=== PATIENT | male | born 1970 | race Caucasian/White ===

== ENCOUNTER 2016-08-24 14:40 | Observation (INO) | payer MEDICARE, OTHER ==
[2016-08-24 15:47] LABS: Hematocrit 43 % (42-52); Hemoglobin 14.8 g/dl (14.0-18.0); Mean Corpuscular HGB Conc 35 g/dl (31-36); Mean Corpuscular Hemoglobin 30 pg (27-31); Mean Corpuscular Volume 86 fL (80-94); Mean Platelet Volume 8 um3 (7.4-10.4); Red Blood Count 4.99 10^6/ul (4.0-5.4); Red Cell Distribution Width 14 % (10.5-15); White Blood Count 12.8 10^3/ul (3.5-10.8)
--- NOTE | 2016-08-24 15:59 | RAD ---
INDICATION: Change in neurologic status and could cortes. COMPARISON: CT brain February 27, 2016 TECHNIQUE: Noncontrast axial source images were acquired from the skull base to the vertex. FINDINGS: Ventricles/sulci: The ventricles and cisterns are normal in size and configuration for age. Brain parenchyma: There is no focal parenchymal finding, evidence of intracranial mass, or intracranial mass effect. Intracranial hemorrhage:None. Extra-axial spaces: There are no abnormal extra axial fluid collections or evidence of extra-axial mass. Calvarium: There is no calvarial fracture or other calvarial abnormality. Scalp: There are multiple subcutaneous scalp lesions appearing unchanged and likely representing sebaceous cysts.. Paranasal sinuses/mastoid: The paranasal sinuses and mastoid air cells are clear. Other: None. IMPRESSION: No acute intracranial findings. Findings called to ED at 1554 hours
[2016-08-24] MEDS ORDERED: Iodixanol* (CONTRAST) 320 MG/ML 100 ML SDV IV ONE (16:02)
[2016-08-24 16:09] LABS: Albumin 4.6 g/dL (3.2-5.2); Calcium 9.7 mg/dL (8.6-10.3); EGFR African American 117.3 (>60); EGFR Non-African American 91.2 (>60); Globulin 3.5 g/dL (2-4); HDL Cholesterol 50.9 mg/dL; Potassium 3.6 mmol/L (3.5-5.0); Total Bilirubin 0.5 mg/dL (0.2-1.0); Total Protein 8.1 g/dL (6.4-8.9)
[2016-08-24] MEDS ORDERED: LORazepam INJ* 2 MG/ML 1 ML VIAL IV ONE (16:20)
--- NOTE | 2016-08-24 16:20 | RAD ---
INDICATION: Code cortes COMPARISON: Chest x-ray June 30, 2013 TECHNIQUE: An AP portable view obtained at 1607 hours is submitted. FINDINGS: Bones/Soft Tissues: There are no acute bony findings. Cardiomediastinal: The cardiomediastinal silhouette is normal. Lungs: There are no infiltrates. Pleura: There are no pleural effusions. Other: None IMPRESSION: NO ACTIVE DISEASE.
[2016-08-24] MEDS ORDERED: Acetaminophen TAB* 325 MG PO PRN (16:43)
[2016-08-24] MEDS ORDERED: Ondansetron INJ* 2 MG/ML VIAL IV PRN (16:45)
--- NOTE | 2016-08-24 16:56 | RAD ---
INDICATION: LEFT face, arm, and bilateral leg weakness. COMPARISON: Noncontrast head CT of the same date. TECHNIQUE: Multidetector CT images were obtained from the aortic arch to the vertex of the head with 80 mL Visipaque 320 IV contrast. Arterial phase of enhancement. Multiplanar reformation including maximum intensity projection. 3-D arterial volume rendering. Stenosis estimations based on denominator of distal arterial diameter. NECK ANGIOGRAM REPORT: Normal configuration of the aortic arch branch vessels. Negative for ostial stenosis. Negative for atherosclerotic plaque at the carotid bifurcations. Negative for carotid arterial dissection. Patent LEFT dominant and diminutive RIGHT vertebral arteries with both vertebral arteries contributing to the basilar artery. Unremarkable cerebellar artery origins. Neck IMPRESSION: 1. No evidence for carotid artery stenosis, occlusion, or dissection. 2. Normal variant LEFT dominant and diminutive vertebral arteries without pathologic finding. HEAD ANGIOGRAM REPORT: Unremarkable intracranial internal carotid arteries as well as the M1 and M2 segments of the middle cerebral arteries and the A1 and A2 segments of the anterior cerebral arteries. No definitive anterior communicating artery visualized. Variant diminutive basilar artery without visualized stenosis. Unremarkable cerebellar artery origins. Patent RIGHT posterior cerebral artery is supplied primarily by the anterior circulation with normal variant hypoplastic RIGHT P1 segment. The patent LEFT posterior cerebral artery is supplied primarily by the posterior circulation with normal variant hypoplastic LEFT posterior communicating artery. Negative for intracranial aneurysms or vascular malformations. No abnormal foci of arterial enhancement evident. Head angiogram IMPRESSION: Normal variation without pathologic finding of the central intracranial arterial vasculature. CPT II: CPT II Codes: 3100F
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
--- NOTE | 2016-08-24 20:13 | RAD ---
Indication: LEFT side weakness. Difficulty walking. Acute onset this afternoon. Comparison: CT angiogram neck of the same date. Technique: [employer] 1.5 Alexandra [id number] with GEM suite. Noncontrast MRI cervical spine. Report: The cervical spinal cord is normal in patterns of signal intensity. No conspicuous spinal cord lesions or syringohydromyelia. Bone marrow signal is normal throughout. Negative for fracture or spondylolysis at any level. Normal vertebral alignment without spondylolisthesis or subluxation at any level. C2-C3: Unremarkable for age. C3-C4: Mild dorsal disc bulge osteophyte complex. Significant bilateral uncinate process spurring which results in moderately severe bilateral foraminal stenosis. C4-C5: Mild dorsal disc osteophyte complex with mild resulting impression on the ventral margin of the thecal sac without significant central canal stenosis. Uncinate process spurring results in moderately severe RIGHT and mild LEFT foraminal stenosis. C5-C6: Mild bilateral uncinate process spurring without significant resulting foraminal stenosis. C6-C7: Mild dorsal disc osteophyte complex with mild resulting impression on the ventral margin of the thecal sac without significant resulting central canal stenosis. Negative for foraminal stenosis. C7-T1: Unremarkable for age. IMPRESSION: Uncinate process spurring results in multilevel foraminal stenosis as described.
[2016-08-24] MEDS ORDERED: Omeprazole CAP* 20 MG PO SCH (21:00)
[2016-08-24] MEDS ORDERED: Citalopram TAB* 40 MG PO SCH (21:00)
[2016-08-24] MEDS: DULoxetine DR CAP* 60 MG CAP.DR PO SCH (21:01)
[2016-08-24] MEDS: Prazosin CAP* 1 MG PO SCH (21:02)
[2016-08-24] MEDS: Estradiol TAB(NF) 2 MG TAB PO SCH (21:05)
[2016-08-24] MEDS: Heparin VIAL(*) 5000 UNITS/ML VIAL (FIVE THOUSAND) SUBCUT SCH (21:09)
[2016-08-24] MEDS ORDERED: Nicotine Inhaler* 10 MG AMP INH PRN (22:37)
[2016-08-24] MEDS ORDERED: Mouth Piece, Nicotine* 1 EACH CARTRIDGE ONE (22:51)
[2016-08-24] MEDS: tiZANidine TAB* 2 MG PO SCH (23:07)
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
[2016-08-25] MEDS ORDERED: ALPRAZolam TAB* 0.5 MG PO PRN (00:43)
[2016-08-25] MEDS ORDERED: Analgesic BALM* 114 GM TOPICAL PRN (00:54)
--- NOTE | 2016-08-25 01:57 | CONS ---
CONSULTATION REPORT: DATE OF CONSULT: DATE OF DICTATION: 08/24/16 PATIENT OF: Dr. Chin. HISTORY: This 46-year-old female is presenting with a variety of symptoms. The symptoms started at roughly 12:30 while in a hair salon. She developed left hand tingling and at roughly 1 o'clock, there was weakness in both legs. The patient dragging her legs, then falling because the legs gave out. There was then left facial droop noted. Within about half an hour later, the patient denied any facial droop and the patient is normally able to walk. There has also been development within this time frame up until about 1:30 of left arm weakness. Of note, she is a transgender female. PAST MEDICAL HISTORY: She has had a history of idiopathic polyneuropathy diagnosed 12 years ago, PTSD, MS x3, and a past history of TIA. She had recently been evaluated by physical therapy within the past year for bilateral leg weakness and left arm weakness. The details of this are unclear and the patient is a poor historian. There is no past history of seizures but the patient apparently had a seizure or a spell in the emergency room. There is a history of coronary artery disease with 3 myocardial infarctions. PAST SURGICAL HISTORY: None listed. MEDICATIONS: She is on: 1. Aspirin. 2. Estradiol. 3. Spironolactone. ALLERGIES: Include CODEINE, GABAPENTIN, LIDOCAINE, FLU VACCINE. FAMILY HISTORY: Noncontributory. SOCIAL HISTORY: Drinks alcohol daily. There is no reported substance abuse. The patient is disabled and retired. REVIEW OF SYSTEMS: Negative other than in the HPI. PHYSICAL EXAM: Temperature 98.2, pulse 106, respiratory rate 16, blood pressure 130/74. The exam changed over the 2 hours that I saw the patient. The patient was alert and oriented throughout with normal speech and comprehension. Cranial nerves II through XII were also intact other than the patient had a facial asymmetry. This was a forceful closing of the left lips making the face asymmetric; however, the patient could wrinkle forehead, close eyes, and smile. When smiled, then the lips relaxed and the face came up and it appeared that the patient had full facial movements. Discs were sharp. Motor exam on the right arm is intact and the left arm, it was inconsistent exam. There was some collapsing weakness, did java programmer analyst fingers tightly but then fingers slipped through her hand but when I pulled against it, java programmer analyst was quite strong. The patient initially could not shrug and at times could shrug shoulders when I helped her up, there was a hesitation. There was no movement in the legs other than later during exam, the patient was able to have strong resistance against my hand pushing the feet up but there was no strength in dorsiflexion or in the legs and all toes were downgoing. Reflexes were 2 at the knees. Sensation appeared intact to touch. Chest: Clear. Cardiovascular: Regular rate and rhythm. Abdomen: Soft with positive bowel sounds. DIAGNOSTIC STUDIES/LAB DATA: Emergency CT scan when the patient first came in as part of the stroke workup was negative. CTA was obtained to make sure that there was no basilar artery clot and no dissection and this was negative as well. MRI scan of the neck was done and was reviewed and showed some osteophytic changes, but primarily neural foraminal stenosis at several levels is described in the report. There was no significant cord compromise noted. White count 12.8, normal hematocrit and platelet count. Normal INR and PTT. CMP had a sodium of 130, chloride of 95, glucose 112, lactic acid 2.2, normal rest of CMP. Of note, LDL was 73. During the visit, the patient had an episode of bilateral leg spasms with legs turning in, arm in spasm, and body arching described by Dr. Ghosh and this did not look like a seizure to me and an EEG done shortly afterwards did not show any epileptiform discharges. IMPRESSION AND PLAN: My initial impression when I first arrived was that this patient was not having a stroke, although it is possible this could have been basilar artery insufficiency presented with leg weakness and one arm weakness and that is why we did the CTA to rule out clot in the basilar system; this was negative. The exam is clearly inconsistent including facial findings and there was inconsistency in the motor exam where with bilateral leg weakness and the arm involvement, some of this truly could point to a problem in the C-spine, it does have some disease there, I do not think it is sufficient to cause her problems, but we will ask Dr. De to comment whether extension or flexion at the [employer] could possibly cause this that is going on here. I discussed with him and Dr. Chin and thought that stress was playing a significant role and producing many of her symptoms. [id number]/[facility] #: [id number] MORIAH
[2016-08-25] MEDS ORDERED: Levothyroxine TAB* 100 MCG TAB PO SCH (06:00)
[2016-08-25] MEDS ORDERED: Levothyroxine TAB* 75 MCG TAB PO SCH (06:00)
[2016-08-25] MEDS: Heparin VIAL(*) 5000 UNITS/ML VIAL (FIVE THOUSAND) SUBCUT SCH (06:23)
[2016-08-25] MEDS ORDERED: Levothyroxine TAB* 150 MCG TAB PO SCH ×2 (08:00→10:00)
[2016-08-25 08:08] LABS: Hematocrit 40 % (42-52); Hemoglobin 13.5 g/dl (14.0-18.0); Mean Corpuscular HGB Conc 34 g/dl (31-36); Mean Corpuscular Hemoglobin 30 pg (27-31); Mean Corpuscular Volume 87 fL (80-94); Mean Platelet Volume 8 um3 (7.4-10.4); Red Blood Count 4.54 10^6/ul (4.0-5.4); Red Cell Distribution Width 14 % (10.5-15); White Blood Count 10.4 10^3/ul (3.5-10.8)
[2016-08-25 08:24] LABS: BUN/Creatinine Ratio 13.8 (8-20); Calcium 8.8 mg/dL (8.6-10.3); EGFR African American 120.4 (>60); EGFR Non-African American 93.7 (>60); Potassium 3.7 mmol/L (3.5-5.0)
[2016-08-25] MEDS ORDERED: NS 0.9% 1000 ML* 2,000 ML IV ONE (08:42)
[2016-08-25] MEDS ORDERED: Aspirin EC TAB* 325 MG PO SCH (09:00)
[2016-08-25] MEDS ORDERED: Analgesic BALM* 114 GM TOPICAL SCH (09:00)
[2016-08-25] MEDS ORDERED: Spironolactone TAB* 25 MG PO SCH (09:00)
[2016-08-25] MEDS: Estradiol TAB(NF) 2 MG TAB PO SCH (09:03)
[2016-08-25 09:06] VITALS: BP 111/70
[2016-08-25] MEDS: tiZANidine TAB* 2 MG PO SCH (09:17)
[2016-08-25] MEDS: Prazosin CAP* 1 MG PO SCH (09:18)
[2016-08-25] MEDS: DULoxetine DR CAP* 60 MG CAP.DR PO SCH (09:18)
--- NOTE | 2016-08-26 04:03 | EEG ---
ELECTROENCEPHALOGRAPHY: DATE OF STUDY: DATE OF DICTATION: 08/25/16 - ROOM #420 PATIENT OF: Dr. Barnes. HISTORY: This is a 46-year-old who is being evaluated for acute spasms thought to be possible seizures in the ER. This occurred in the ER while the patient is being evaluated for bilateral leg weakness, left arm weakness and left facial weakness or spasm. MEDICATIONS: Include: 1. Synthroid. 2. Prazosin. 3. Omeprazole. 4. Celexa. 5. Estradiol. 6. Zofran. 7. Aldactone. 8. Cymbalta. INTERPRETATION: With the patient awake, background cerebral activity consists of moderate amplitude posterior dominant 9 to 10 Hz rhythm. Some admixed beta activity is noted. Prominent muscle movement artifact noted at times. Of note, the patient was weak in the legs and arm and had a possible facial weakness during this test. This test is done shortly after the few minutes of spasms were over. Photic stimulation did not activate the record. CLINICAL IMPRESSION: This awake EEG is within normal limits. There is no epileptiform potentials, focal abnormalities, or major asymmetries of background noted. [id number]/[facility] #: [id number] [facility]
--- NOTE | 2016-08-26 12:01 | DS ---
DISCHARGE SUMMARY: DATE OF ADMISSION: 08/24/16 DATE OF DISCHARGE: 08/25/16 PRIMARY CARE PROVIDER: Dr. Vj Bruno in [place]. PRIMARY DIAGNOSES: 1. Conversion disorder. 2. Pseudoseizure. SECONDARY DIAGNOSES: Include: 1. History of polyneuropathy. 2. History of coronary artery disease per report. 3. History of posttraumatic stress disorder. MEDICATIONS AT DISCHARGE: 1. Tizanidine 4 mg twice daily. 2. Thiamine 250 mg daily. 3. Albuterol HFA one puff every 6 hours as needed. 4. Vitamin B12 1000 mcg monthly. 5. Aspirin 325 mg daily. 6. Cymbalta 60 mg daily. 7. Omeprazole 20 mg twice daily. 8. Ambien 5 mg at bedtime as needed. 9. Xanax 1 mg 3 times a day as needed. 10. Aldactone 100 mg twice daily. 11. Fish oil 1000 mg daily. 12. Estradiol 2 mg twice daily. 13. Sumatriptan 100 mg daily as needed for migraine. 14. Ondansetron 4 mg every 8 hours as needed for nausea. 15. Prazosin 2 mg twice daily. 16. Levothyroxine 150 mcg daily. PERTINENT LABORATORY DATA: Lactic acid 4.4, on repeat 1.9. PERTINENT IMAGING PERFORMED DURING HOSPITAL STAY: 1. EEG official report not read; however, interpreted by Neurology as no active seizure-like activity. 2. Head CTA: Impression - normal variation without pathological finding of a central intracranial arterial vasculature. 3. Cervical MRI: Impression - uncinate process spurring results in multilevel foraminal stenosis. HISTORY OF PRESENT ILLNESS AND HOSPITAL COURSE: This is a 46-year-old transgender male to female, been in her usual state of health, getting her hair done when she started to develop left hand tingling followed by lower extremity weakness and followed by a left facial droop. The patient presented to the hospital. A [facility] was called, she was seen by Dr. Pool where there was a low suspicion for a stroke. The patient had incongruous neurological findings and what appeared to clearly be an intentional left facial droop, where the patient was squeezing the left side of her face closed, but occasionally forgot to do so. Intermittent slurred-like speech. The patient's primary complaint was pain in the lower extremities as well as weakness and inability to use the legs. The patient was admitted to the hospital for observation. Strength in the lower extremities did improve; however, not returned to normal. The patient reports that in 2004, she had a similar episode where she had total loss of her lower extremities and was in the hospital for 6 weeks and on the highest doses of narcotics you could believe. The patient also related that she had intermittent waxing/waning lower extremity weakness, walks with a cane at all times and has a wheelchair at home , with a wheelchair-accessible apartment for this reason. She felt back to her baseline and was ready to leave the hospital, trying to leave AMA. Imaging did not indicate any evidence for why the patient may have had lower extremity weakness. It was thought to represent conversion disorder in the setting of increased stressors in the patient's life, including her relationship with her partner. No changes were made to home medications. Extensive return to the emergency room instructions were given to the patient. She acknowledged understanding. Please refer to the complete medical record for further details surrounding this patient's hospital stay. TIME SPENT: Greater than 45 minutes were spent on the discharge of this patient , greater than half was spent [id number] with the patient. [id number]/[facility] #: [id number] MORIAH
== END 2016-08-25 12:30 | disposition home or self-care (01) ==
LOC: ED 14:40 → MED 16:43
PROVIDERS: ADMIT Internal Medicine; ATTEND Internal Medicine
DX: F44.4 Conversion disorder with motor symptom or deficit (principal); R56.9 Unspecified convulsions; R20.2 Paresthesia of skin; F64.0 Transsexualism; I25.10 Atherosclerotic heart disease of native coronary artery without angina pectoris; G62.9 Polyneuropathy, unspecified; F43.10 Post-traumatic stress disorder, unspecified; Z79.899 Other long term (current) drug therapy; Z88.8 Allergy status to other drugs, medicaments and biological substances; I25.2 Old myocardial infarction; Z86.73 Personal history of transient ischemic attack (TIA), and cerebral infarction without residual deficits
CPT/HCPCS: 36415; 70450; 70496; 70498; 71010; 72141; 80048; 80053; 80061; 83605; 84484; 85025; 85610; 85730; 86850; 86900; 86901; 95816; 96372; 96374; 99291; A9270-GY; G0378; J2060; Q9967